=== PATIENT | male | born 1995 | race Caucasian/White ===

== ENCOUNTER 2019-08-05 01:04 | Emergency (ER) | payer MEDICAID ==
[~2019-08-05] VITALS: Ht 170.2 cm; Wt 59.0 kg
[2019-08-05 02:58] VITALS: BP 122/78
== END 2019-08-05 02:58 | disposition home or self-care (01) ==
LOC: ER 01:04
DX: B86 Scabies (principal); F41.9 Anxiety disorder, unspecified; I51.9 Heart disease, unspecified; F14.10 Cocaine abuse, uncomplicated; F15.10 Other stimulant abuse, uncomplicated; Z95.2 Presence of prosthetic heart valve; Z88.0 Allergy status to penicillin
CPT/HCPCS: 99282

== ENCOUNTER 2022-12-28 07:25 | Emergency (ER) | payer MEDICAID ==
[~2022-12-28] VITALS: Ht 165.1 cm; Wt 56.0 kg
[2022-12-28 08:53] LABS: BASOPHILS % 0.3 % (0.0-2.0); EOSINOPHILS % 0.5 % (0.0-5.0); HEMATOCRIT. 28.9 % (42.0-52.0); HEMOGLOBIN. 9.6 g/dL (14.0-18.0); LYMPHOCYTES % 15.9 % (20.0-50.0); MEAN CORPUSCULAR HEMOGLOBIN 26.3 pg (28.0-32.0); MEAN CORPUSCULAR VOLUME 79.3 fL (80.0-94.0); NEUTROPHILS % 73.3 % (40.0-76.0); PLATELET 172 x1000/uL (130-400); RED BLOOD CELL COUNT 3.64 mill/uL (4.7-6.1); RED CELL DISTRIBUTION WIDTH 16.8 % (11.6-14.6)
[2022-12-28 08:58] LABS: CHLORIDE 103 mEq/L (98-107)
[2022-12-28] MEDS ORDERED: TRAMADOL 50MG TABLET PO ONE (13:00)
[2022-12-28] MEDS ORDERED: MELO-104 MT (14:54)
[2022-12-28 15:24] VITALS: BP 102/61
== END 2022-12-28 19:29 | disposition home or self-care (01) ==
LOC: ER 07:47
DX: R07.9 Chest pain, unspecified (principal); R79.89 Other specified abnormal findings of blood chemistry; R05.9 Cough, unspecified; I50.9 Heart failure, unspecified; F41.9 Anxiety disorder, unspecified; Z88.0 Allergy status to penicillin; Z88.1 Allergy status to other antibiotic agents
CPT/HCPCS: 36415; 71045; 80053; 83880; 84484; 85025; 93005; 99285; Z7610

== ENCOUNTER 2024-06-24 17:00 | Emergency (ER) | payer MEDICAID ==
[~2024-06-24] VITALS: Ht 172.7 cm; Wt 63.5 kg
[~2024-06-24 17:00] MED LIST: MELO-104 MT
[2024-06-24 17:26] VITALS: BP 103/58; PULSE 66; RESP 16; TEMP 98.2; O2SAT 98
[2024-06-24] MEDS: TETANUS, DIPHTHERIA, PERTUSSIS VAC/PF 0.5ML (>10YR OLD) IM ONE (18:11)
[2024-06-24] MEDS ORDERED: BO1 TP (18:33)
== END 2024-06-24 19:35 | disposition home or self-care (01) ==
LOC: ER 17:00
DX: S61.411A Laceration without foreign body of right hand, initial encounter (principal); Z88.0 Allergy status to penicillin; Z88.1 Allergy status to other antibiotic agents; Z88.2 Allergy status to sulfonamides; Z98.890 Other specified postprocedural states; X58.XXXA Exposure to other specified factors, initial encounter; Y93.89 Activity, other specified; Y92.89 Other specified places as the place of occurrence of the external cause; Y99.8 Other external cause status
CPT/HCPCS: 73120; 90471; 90715; 99283